=== PATIENT | male | born 1980 | race Caucasian/White ===

== ENCOUNTER 2018-02-09 21:58 | Emergency (ER) | payer OTHER ==
[2018-02-09 22:27] VITALS: BP 120/44
--- NOTE | 2018-02-09 23:20 | Emergency Department Report ---
HPI - General Chief Complaint: Allergic Reaction Time Seen by Provider: 02/09/18 22:05 - HPI HPI: 38-year-old male with no past medical history presents to the hospital in [facility] for possible allergic reaction. Patient complained of a toothache. At 6:45 PM patient received Tylenol 650 mg and Motrin 600 mg by mouth. At 8:20 PM he began to have generalized rash with pruritus. No lip, tongue, throat swelling, or shortness of breath reported. Patient received by mouth Benadryl 50 mg and Solu-Medrol 125 mg IM prior to arrival. Patient states he feels fine and symptoms have improved but rash persists. Denies previous known allergies ED Past Medical Hx - Past Medical History Previous Medical History?: No - Social History Smoking Status: Current Every Day Smoker Substance Use Type: None - Medications Home Medications: Home Medications Medication Instructions Recorded Confirmed Last Taken Type Famotidine [Pepcid] 20 mg PO BID #10 tablet 02/10/18 Unknown Rx diphenhydrAMINE [Benadryl CAP] 50 mg PO Q8HR PRN #20 capsule 02/10/18 Unknown Rx predniSONE [Deltasone] 40 mg PO QDAY 5 Days tab 02/10/18 Unknown Rx ED Review of Systems ROS: Stated complaint: ALLERGIC REACTION Other details as noted in HPI Comment: All other systems reviewed and negative Physical Exam - Physical Exam Vital Signs: Vital Signs 02/09/18 02/09/18 22:24 22:26 Temperature 98.2 F Pulse Rate 86 Respiratory 18 18 Rate Blood Pressure 120/44 [Left] O2 Sat by Pulse 100 Oximetry General: General: No limitations, patient is alert in no acute distress Head exam: Atraumatic, normocephalic Eyes exam: Normal appearance, pupils equal reactive to light, extraocular movements intact ENT: Moist mucous membrane, normal oropharynx without edema Neck exam: Normal inspection, full range of motion, no meningismus nontender Respiratory exam: Clear to auscultation bilateral, no wheezes, rales, crackles Cardiovascular: Normal rate and rhythm, normal heart sounds Abdomen: Soft, nondistended, and nontender, with normal bowel sounds, no rebound, or guarding Extremity: Full range of motion normal inspection no deformity Back: Normal Inspection, full range of motion, no tenderness Neurologic: Alert, oriented x3, cranial nerves intact, no motor or sensory deficit Psychiatric: normal affect, normal mood Skin: Generalized urticaria rash ED Course Vital Signs 02/09/18 02/09/18 22:24 22:26 Temperature 98.2 F Pulse Rate 86 Respiratory 18 18 Rate Blood Pressure 120/44 [Left] O2 Sat by Pulse 100 Oximetry - Reevaluation(s) Reevaluation #1: 02/10/18 00:52 pt stable ED Medical Decision Making - Medical Decision Making no additional meds provided pt has rash without other sx will be d/peggy with additional meds unsure if allergy is to tylenol or motrin since pt took both prior to sx onset - Differential Diagnosis allergic reaction Critical Care Time: No Critical care attestation.: If time is entered above; I have spent that time in minutes in the direct care of this critically ill patient, excluding procedure time. ED Disposition Clinical Impression: Allergic reaction caused by a drug Disposition: DC-01 TO HOME OR SELFCARE Is pt being admited?: No Does the pt Need Aspirin: No Condition: Stable Instructions: Allergies (ED) Additional Instructions: Do not take Tylenol or Motrin since we are unsure which medication you are allergic to. Follow-up with senior specialist for further testing. Return if symptoms worsen as indicated by your discharge instructions. Take the medications as prescribed. No tome Tylenol o Motrin ya que no estamos seguros a qu medicamento es alrgico. Daniel un seguimiento con un alerglogo para realizar ms pruebas. Vuelva si los sntomas empeoran segn lo indicado por rashmi instrucciones de dina. Gonzales los medicamentos segn lo recetado. Prescriptions: diphenhydrAMINE [Benadryl CAP] 50 mg PO Q8HR PRN #20 capsule PRN Reason: Allergic Reaction Famotidine [Pepcid] 20 mg PO BID #10 tablet predniSONE [Deltasone] 40 mg PO QDAY 5 Days tab Referrals: YAIR ALATORRE MD [Staff Physician] - 3-5 Days (senior specialist) MAGGI MCKEON MD [Referring] - 3-5 Days (senior specialist) [facility] [Provider Group] - 3-5 Days (primary care clinic) Time of Disposition: 00:56 Print Language: SLOVAK
== END 2018-02-10 01:14 ==
LOC: EEVIPCON 21:58 → ED 21:58
DX: T78.40XA Allergy, unspecified, initial encounter (principal); F17.200 Nicotine dependence, unspecified, uncomplicated; T45.0X5A Adverse effect of antiallergic and antiemetic drugs, initial encounter; Y92.149 Unspecified place in prison as the place of occurrence of the external cause; Z79.899 Other long term (current) drug therapy
CPT/HCPCS: 99282